=== PATIENT | female | born 1960 | race Caucasian/White ===

== ENCOUNTER 2023-11-17 14:24 | Outpatient (AMB) | payer OTHER, SELFPAY ==
--- NOTE | 2023-11-17 14:24 | MHC.OFFWIV ---
Intake Vital Signs 11/17/23 14:53 Height 5 ft 2 in Weight 142 lb BMI 26.0 BP 130/80 Blood Pressure Location Lt brachial Position Sitting Pulse 60 Pulse Source Pulse Oximeter Pulse Oximetry (%) 98 Oxygen Delivery Method Room Air Intake Visit Reasons: [employer]-rt ankle pain-fall Intake Note: Patient here for right ankle pain, states she missed a step and twisted the ankle today. Patient Tobacco Use Status: Never used Tobacco Allergies penicillin Allergy (Unknown, Uncoded 11/17/23 14:54) hives z-pack Allergy (Unknown, Uncoded 11/17/23 14:54) rash, hives Do you need a note to return to daycare/school/sports/work: No HPI HPI Comments History of Present Illness Details Patient is a 63-year-old female complaining of a twisted ankle on her right ankle. She states she was walking down some steps about an hour ago when she missed the last step or 2 and she twisted her ankle outward. She is complaining of pain the right side of her foot but also in the arch of her foot. She is able to walk on it but it is painful. She did try to apply some ice which did not really seem to help and she used a compression sleeve around the ankle but has not taken any medications to try to make it feel better. [facility] Social History Patient Tobacco Use Status: Never used Tobacco Review of Systems Const All systems reviewed & are unremarkable except as noted in HPI and below Physical Exam Vital Signs: Last Vital Signs Pulse 60 11/17/23 14:53 BP 130/80 11/17/23 14:53 Pulse Ox 98 11/17/23 14:53 Oxygen Delivery Method Room Air 11/17/23 14:53 BMI result Body Mass Index 26.0 Const General: cooperative, healthy appearing, comfortable and no acute distress Orientation/consciousness: patient oriented x3 Limitations: no limitations HEENT Head: Yes normal to inspection Resp Effort & Inspection: normal respiratory effort and able to speak in complete sentences Neuro General: patient oriented x3 Extrem Right lower extremity: ankle Details: normal to inspection, swelling Details: laterally, normal ROM and ecchymosis (Lateral mid foot); no tenderness, no unusual warmth, no abrasions and no lacerations and foot Details: normal capillary refill, normal to inspection, toes with normal ROM, ecchymosis (lateral side), vascular exam Details: normal capillary refill, tendon exam Details: active flexion normal and active extension normal and motor-sensory exam Details: light-touch normal; no tenderness, no unusual warmth, no edema, no abrasion and no laceration Assessment & Plan Assessment & Plan (1) Right ankle sprain: Code(s): S93.401A - Sprain of unspecified ligament of right ankle, initial encounter Qualifiers: Encounter type: initial encounter Involved ligament of ankle: anterior talofibular ligament Qualified Code(s): S93.491A - Sprain of other ligament of right ankle, initial encounter Plan: Negative for auto ankle rules therefore we will not get a x-ray of the ankle. Likely just a sprain due to mechanism of action. Applied an Maximo wrap recommended she use ice, rest it and use Aleve. She states she has crutches at home so she declined any here today. Recommended if it is not feeling better gradually over time in the next 4-6 weeks, she should follow up with her PCP. Plan see above Coding Level of Care Code New Pt Level 3 (22293) Diagnoses Sprain of anterior talofibular ligament of right ankle, initial encounter S93.491A Encounter type: initial encounter Involved ligament of ankle: anterior talofibular ligament
[2023-11-17 14:53] VITALS: BP 130/80; PULSE 60; O2SAT 98; BMI 26.0
== END 2023-11-17 15:06 | disposition home or self-care (01) ==
PROVIDERS: PCP Nurse Practitioner Women's Health; Visit Provider Physician Assistant
DX: S93.491A Sprain of other ligament of right ankle, initial encounter (principal)

== ENCOUNTER → 2023-11-17 14:24 | Outpatient (BNVA) | payer OTHER, SELFPAY | PROVIDERS: PCP Nurse Practitioner Women's Health ==